=== PATIENT | male | born 1965 | race Hispanic/Latino ===

== ENCOUNTER 2016-11-26 17:33 | Emergency (ER) | payer OTHER ==
--- NOTE | 2016-11-26 18:55 | RAD ---
EXAM: Sternum CLINICAL INDICATION: 51-year-old male status post trauma, hit in the chest with a pipe. COMPARISON: None. TECHNIQUE: Two views of the sternum were obtained in oblique and lateral projection. FINDINGS: There is no fracture or dislocation. The joint spaces are preserved. No soft tissue abnormalities are seen. IMPRESSION: No acute radiographic abnormality. If there remains clinical concern for bone trauma, CT chest may be considered. A Electronically signed by: Elaine Jaramillo MD 11/26/2016 6:53 PM CDT
[2016-11-26] MEDS ORDERED: KETOROLAC TROMETHAMINE INJ 30 MG/ML VIAL IM ONE (19:45)
[2016-11-26] MEDS ORDERED: KETOROLAC TROMETHAMINE INJ 30 MG/ML VIAL ONE (19:46)
[2016-11-26 20:24] VITALS: O2SAT 95
[2016-11-26] MEDS ORDERED: NEOMYCIN-BACITRACIN-POLYMYXIN 0.9 GM UD TOP ONE (20:30)
--- NOTE | 2016-11-26 21:18 | ED.PDOC ---
History of Present Illness - General Chief Complaint: Trauma Stated Complaint: Hit in chest by a pipe works in the [place] Time Seen by Provider: 11/26/16 18:19 Source: patient, RN notes reviewed, Vital Signs reviewed Exam Limitations: no limitations - History of Present Illness Initial Comments: Patient is a 51 y/o male who was working in the [place] earlier to day when a large steel pipe hit him in the middle of the chest. It stunned him and he couldn't breathe for a few seconds. He reports severe pain to the chest which is a pressure. He is having no shortness of breath now. He has not felt any palpitations. Timing/Duration: 4-6 hours Severity: severe Improving Factors: nothing Worsening Factors: movement Associated Symptoms: denies symptoms Allergies/Adverse Reactions: Allergies NO KNOWN ALLERGY Allergy (Verified 08/19/16 09:08) Home Medications: Ambulatory Orders Naproxen [Naprosyn] 500 mg PO BID #30 tab 11/26/16 tiZANidine [Zanaflex] 4 mg PO TID PRN #30 tab 11/26/16 Review of Systems - Review of Systems Constitutional: States: no symptoms reported. Denies: chills, fever EENTM: States: no symptoms reported. Denies: ear pain, nose congestion, throat pain Respiratory: States: short of breath Cardiology: States: chest pain Gastrointestinal/Abdominal: States: no symptoms reported. Denies: nausea, vomiting Genitourinary: States: no symptoms reported. Denies: dysuria Musculoskeletal: States: muscle pain, other - sternal pain. Denies: joint pain , joint swelling Skin: States: other - small laceration to right forearm. Neurological: States: no symptoms reported. Denies: numbness, tingling Endocrine: States: no symptoms reported. Denies: intolerance to cold, intolerance to heat Hematologic/Lymphatic: States: no symptoms reported. Denies: anemia All other Systems: Reviewed and Negative Past Medical History (General) - Patient Medical History Hx Seizures: No Hx Stroke: No Hx Dementia: No Hx Asthma: No Hx of COPD: No Hx Cardiac Disorders: No Hx Congestive Heart Failure: No Hx Pacemaker: No Hx Hypertension: Yes Hx Thyroid Disease: No Hx Diabetes: No Hx Gastroesophageal Reflux: No Hx Renal Disease: No Hx Cancer: No Hx of HIV: No Hx Hepatitis C: No Hx MRSA: No Surgical History: no surgical history - Vaccination History Hx Tetanus, Diphtheria Vaccination: No Hx Influenza Vaccination: No Hx Pneumococcal Vaccination: No Immunizations Up to Date: No - Social History Hx Tobacco Use: No Hx Chewing Tobacco Use: No Hx Alcohol Use: Yes - Occas Hx Substance Use: No Hx Substance Use Treatment: No Hx Depression: No Feels Threatened In Home Enviroment: No Feels Threatened In a Relationship: No Hx Physical Abuse: No Hx Emotional Abuse: No Hx Suspected Abuse: No Family Medical History - Family History Mother Family History: No Known Physical Exam - Physical Exam General Appearance: Alert, Obvious distress - mild to moderate Eye Exam: bilateral normal Ears, Nose, Throat: hearing grossly normal, normal ENT inspection Neck: non-tender, full range of motion, supple, normal inspection Respiratory: lungs clear, normal breath sounds, no respiratory distress, no accessory muscle use, other - chest wall tenderness lower sternum and associated cartilage Cardiovascular/Chest: normal peripheral pulses, regular rate, rhythm, no edema, no murmur Gastrointestinal/Abdominal: normal bowel sounds, non tender, soft, no organomegaly Extremity: normal range of motion, non-tender, normal inspection Neurologic: alert, normal mood/affect, oriented x 3 Skin Exam: other - abrasion and ecchymosis to anterior chest at lower sternum which is horizontally 7 cm wide and longitudinally 4 cm at widest part. A 2.4 cm superficial laceration is on right forearm just inferior to the elbow posteriorally. Progress - Results/Orders Results/Orders: 11/26/16 11/26/16 11/26/16 19:07 19:08 20:14 Temperature 99.6 F Pulse Rate 81 Pulse Rate [R 79 77 Arm] Respiratory 18 23 Rate Blood Pressure 149/97 139/83 [R Hand] O2 Sat by Pulse 95 93 L Oximetry 11/26/16 20:19 Temperature 98.7 F Pulse Rate 81 Pulse Rate [R 85 Arm] Respiratory 23 Rate Blood Pressure 139/83 [R Hand] O2 Sat by Pulse 95 Oximetry 11/26/16 18:30 EKG STAT Laboratory Results Troponin I < 0.02 ng/mL (0.01-0.05) 11/26/16 18:30 - EKG/XRAY/CT EKG: Sinus - 80 bpm, no ST T wave changes Comments: 1st degree a/v block, NML axis, No comparison--SR with 1st degree a/v block XRAY: sternum - No fracture Procedures - Laceration/Wound Repair Left Arm Wound Length (cm): 2.4 Wound's Depth, Shape: superficial Wound Explored: clean Irrigated w/ Saline (cc's): 20 Betadine Prep?: Yes Wound Repaired With: dermabond Layer Closure?: No Departure - Departure Clinical Impression: Acute traumatic injury of chest wall Chest wall contusion Qualifiers: Encounter type: initial encounter Laterality: unspecified laterality Qualifier Code: (S20.219A) Contusion of unspecified front wall of thorax, initial encounter Laceration of right upper extremity Qualifiers: Encounter type: initial encounter Qualifier Code: (S41.111A) Laceration without foreign body of right upper arm, initial encounter ICD-10 Supporting Text: Blunt chest wall injury by steel maria victoria. Laceration 2.4 cm in length. Time of Disposition: 21:32 Disposition: Discharge to Home or Self Care Condition: Fair Departure Forms: ED Discharge - Pt. Copy, Patient Portal Self Enrollment Instructions: DI for Laceration Repair With Dermabond Diet: resume usual diet Referrals: RONALDO MENDEZ [employer] [Primary Care Provider] - 1-2 Weeks Prescriptions: Naproxen [Naprosyn] 500 mg PO BID #30 tab tiZANidine [Zanaflex] 4 mg PO TID PRN #30 tab PRN Reason: Muscle Spasms Home Medications: Ambulatory Orders Naproxen [Naprosyn] 500 mg PO BID #30 tab 11/26/16 tiZANidine [Zanaflex] 4 mg PO TID PRN #30 tab 11/26/16
[2016-11-26 21:46] VITALS: BP 130/79; TEMP 97
== END 2016-11-26 21:46 | disposition home or self-care (01) ==
LOC: ER 17:33
DX: S20.219A Contusion of unspecified front wall of thorax, initial encounter (principal); S41.111A Laceration without foreign body of right upper arm, initial encounter; I10 Essential (primary) hypertension; W22.8XXA Striking against or struck by other objects, initial encounter; Y92.65 Oil rig as the place of occurrence of the external cause; Y99.0 Civilian activity done for income or pay
CPT/HCPCS: 36415; 71120; 84484; 93005; J1885

== ENCOUNTER → 2016-12-26 | Outpatient (CLI) | payer SELFPAY | END | disposition home or self-care (01) | LOC: YCFC.O 08:31 | PROVIDERS: ATTEND Nurse Practitioner Family | DX: E78.2 Mixed hyperlipidemia (principal); I10 Essential (primary) hypertension ==

== ENCOUNTER 2017-06-22 09:32 | Emergency (ER) | payer SELFPAY ==
[2017-06-22 09:37] VITALS: TEMP 98.7
--- NOTE | 2017-06-22 10:16 | ED.PDOC ---
History of Present Illness - General Chief Complaint: Blood Pressure Problem Stated Complaint: high blood pressure Time Seen by Provider: 06/22/17 10:13 Source: patient Exam Limitations: no limitations - History of Present Illness Initial Comments: Aryan Gunter 52 y/o male stated that his blood pressure went up this morning and has mild headache today no blurry vision,no nausea vomiting ,no chest pains ,no weakness ,no numbness,no photophobia,no phonopsia Timing/Duration: 4-6 hours Severity: moderate Improving Factors: nothing Worsening Factors: nothing Associated Symptoms: other - headache Allergies/Adverse Reactions: Allergies NO KNOWN ALLERGY Allergy (Verified 06/22/17 09:37) Home Medications: Ambulatory Orders Lisinopril & Hydrochlorothiazi [Lisinopril/Hctz 20-25 mg] 2 tab PO DAILY Review of Systems - Review of Systems Constitutional: States: no symptoms reported EENTM: States: no symptoms reported Respiratory: States: no symptoms reported Cardiology: States: no symptoms reported, chest pain Genitourinary: States: see HPI Musculoskeletal: States: no symptoms reported Skin: States: no symptoms reported Neurological: States: headache Endocrine: States: no symptoms reported Past Medical History (General) - Patient Medical History Hx Seizures: No Hx Stroke: No Hx Dementia: No Hx Asthma: No Hx of COPD: No Hx Cardiac Disorders: No Hx Congestive Heart Failure: No Hx Pacemaker: No Hx Hypertension: Yes Hx Thyroid Disease: No Hx Diabetes: No Hx Gastroesophageal Reflux: No Hx Renal Disease: No Hx Cancer: No Hx of HIV: No Hx Hepatitis C: No Hx MRSA: No Surgical History: no surgical history - Vaccination History Hx Tetanus, Diphtheria Vaccination: No Hx Influenza Vaccination: No Hx Pneumococcal Vaccination: No - Social History Hx Tobacco Use: No Hx Chewing Tobacco Use: No Hx Alcohol Use: Yes - 6 cans beer /day Hx Substance Use: No Hx Substance Use Treatment: No Hx Depression: No Hx Physical Abuse: No Hx Emotional Abuse: No Hx Suspected Abuse: No Family Medical History - Family History Mother Family History: No Known Hx Family Hypertension: Yes - multiple family members Hx Family Diabetes: Yes - mom Physical Exam - Physical Exam General Appearance: Alert, No apparent distress Eye Exam: bilateral normal Ears, Nose, Throat: hearing grossly normal, normal ENT inspection, normal pharynx Neck: non-tender, full range of motion, supple Respiratory: lungs clear, normal breath sounds Cardiovascular/Chest: regular rate, rhythm, no murmur Peripheral Pulses: radial,right: 2+, radial,left: 2+ Gastrointestinal/Abdominal: normal bowel sounds, non tender, soft, no organomegaly Back Exam: normal inspection, no CVA tenderness Extremity: non-tender, normal inspection, no pedal edema, no calf tenderness Neurologic: no motor/sensory deficits, alert, normal mood/affect, oriented x 3 Progress - Progress Progress: 06/22/17 10:19 Vital Signs - 8 hr 06/22/17 09:32 Temperature 98.7 F Pulse Rate [ 96 H pulse ox] Respiratory 20 Rate Blood Pressure 172/93 [Left Arm] O2 Sat by Pulse 98 Oximetry 06/22/17 11:03 Vital Signs - 8 hr 06/22/17 09:32 Temperature 98.7 F Pulse Rate [ 96 H pulse ox] Respiratory 20 Rate Blood Pressure 172/93 [Left Arm] O2 Sat by Pulse 98 Oximetry Stated feeling better after clonidine and tylenol BP-156/93 pulse rate 87 Departure - Departure Clinical Impression: Hypertension Qualifiers: Hypertension type: essential hypertension Qualified Code(s): I10 - Essential ( primary) hypertension Time of Disposition: 11:05 Disposition: Discharge to Home or Self Care Condition: Good Departure Forms: ED Discharge - Pt. Copy, Patient Portal Self Enrollment Instructions: DI for High Blood Pressure Diet: low fat, low cholesterol Referrals: RONALDO MENDEZ [employer] [Primary Care Provider] - 1-2 Weeks Home Medications: Ambulatory Orders Lisinopril & Hydrochlorothiazi [Lisinopril/Hctz 20-25 mg] 2 tab PO DAILY Additional Instructions: Need to take high blood pressure medication one tablet am/pm NOT 2 tabs at bedtime
[2017-06-22] MEDS ORDERED: cloNIDine HCL 0.1 MG TAB PO ONE (10:19)
[2017-06-22] MEDS ORDERED: ACETAMINOPHEN 325 MG TAB PO ONE (10:20)
[2017-06-22 11:14] VITALS: BP 156/93; O2SAT 97
== END 2017-06-22 11:14 | disposition home or self-care (01) ==
LOC: ER 09:32
DX: I10 Essential (primary) hypertension (principal)

== ENCOUNTER → 2017-11-05 | Outpatient (CLI) | payer OTHER | LOC: LAB.O 08:11 | PROVIDERS: ATTEND Nurse Practitioner Family | DX: I10 Essential (primary) hypertension (principal); E78.2 Mixed hyperlipidemia ==

== ENCOUNTER 2019-03-30 13:21 | Emergency (ER) | payer SELFPAY ==
[2019-03-30 13:35] VITALS: TEMP 98.2; O2SAT 98
[2019-03-30] MEDS ORDERED: KETOROLAC TROMETHAMINE INJ 60 MG/2 ML VIAL IM ONE (14:24)
--- NOTE | 2019-03-30 14:25 | ED.PDOC ---
History of Present Illness - General Chief Complaint: Headache Stated Complaint: HEADACHE AND BP ELEVATED Time Seen by Provider: 03/30/19 14:08 Source: patient Exam Limitations: no limitations - History of Present Illness Initial Comments: C/O 2 DAY HX OF [place]. L SIDED, SHARP, NON RADIATING. NO HX OF TRAUMA, MIL-MOD, NO PRECIPITATING OR RELIEVING FACTORS. Timing/Duration: other - 2 DAYS. Severity: moderate Improving Factors: nothing Worsening Factors: nothing Allergies/Adverse Reactions: Allergies NO KNOWN ALLERGY Allergy (Verified 03/30/19 13:32) Home Medications: Ambulatory Orders Lisinopril & Hydrochlorothiazi [Lisinopril/Hctz 20-25 mg] 2 tab PO DAILY 06/22/17 [id number] [Fioricet] 1 tab PO TID PRN 10 Days #30 tab 03/30/19 Review of Systems - Review of Systems Constitutional: Denies: chills, fever EENTM: Denies: eye pain, ear pain, nose congestion, throat pain Respiratory: Denies: cough, short of breath Cardiology: Denies: chest pain, palpitations Gastrointestinal/Abdominal: Denies: abdominal pain, nausea, vomiting Genitourinary: States: no symptoms reported Musculoskeletal: States: no symptoms reported Skin: States: no symptoms reported Neurological: States: headache. Denies: numbness, weakness Endocrine: States: no symptoms reported Hematologic/Lymphatic: States: no symptoms reported Past Medical History (General) - Patient Medical History Hx Seizures: No Hx Stroke: No Hx Dementia: No Hx Asthma: No Hx of COPD: No Hx Cardiac Disorders: No Hx Congestive Heart Failure: No Hx Pacemaker: No Hx Hypertension: Yes Hx Thyroid Disease: No Hx Diabetes: No Hx Gastroesophageal Reflux: No Hx Renal Disease: No Hx Cancer: No Hx of HIV: No Hx Hepatitis C: No Hx MRSA: No Surgical History: no surgical history - Vaccination History Hx Tetanus, Diphtheria Vaccination: No Hx Influenza Vaccination: No Hx Pneumococcal Vaccination: No - Social History Hx Tobacco Use: No Hx Chewing Tobacco Use: No Hx Alcohol Use: Yes - 6 cans beer /day Hx Substance Use: No Hx Substance Use Treatment: No Hx Depression: No Hx Physical Abuse: No Hx Emotional Abuse: No Hx Suspected Abuse: No Family Medical History - Family History Mother Family History: No Known Hx Family Hypertension: Yes - multiple family members Hx Family Diabetes: Yes - mom Hx Family Cancer: Yes Physical Exam - Physical Exam General Appearance: Alert, No apparent distress Eye Exam: bilateral normal Ears, Nose, Throat: hearing grossly normal, normal ENT inspection, normal pharynx, other - TM'S NL NELSON. Neck: non-tender, full range of motion, supple, normal inspection Respiratory: lungs clear, normal breath sounds Cardiovascular/Chest: regular rate, rhythm, no murmur Gastrointestinal/Abdominal: non tender, soft, no organomegaly Back Exam: normal inspection, no CVA tenderness Extremity: normal range of motion, non-tender, normal inspection Neurologic: no motor/sensory deficits, alert, normal mood/affect, oriented x 3 Skin Exam: normal color, warm/dry Lymphatic: no adenopathy Progress - Progress Progress: 03/30/19 15:32 FEELS BETTER, BP BETTER. Departure - Departure Clinical Impression: Tension headache HTN (hypertension) Qualifiers: Hypertension type: essential hypertension Qualified Code(s): I10 - Essential (primary) hypertension Time of Disposition: 15:33 Disposition: Discharge to Home or Self Care Condition: Good Departure Forms: ED Discharge - Pt. Copy, Patient Portal Self Enrollment Instructions: DI for Headache Referrals: RONALDO MENDEZ [employer] [Primary Care Provider] - 1-2 Weeks Prescriptions: Mnartlaidiwum-Sdzs-Wvfvohitmu [Fioricet] 1 tab PO TID PRN 10 Days #30 tab PRN Reason: Headache/Migraine Pain Home Medications: Ambulatory Orders Lisinopril & Hydrochlorothiazi [Lisinopril/Hctz 20-25 mg] 2 tab PO DAILY 06/22/17 Tyrzpcgffmqzo-Pvjc-Vufovyzloj [Fioricet] 1 tab PO TID PRN 10 Days #30 tab 03/30/19
[2019-03-30 15:44] VITALS: BP 145/92
== END 2019-03-30 15:44 | disposition home or self-care (01) ==
LOC: ER 13:21
DX: G44.209 Tension-type headache, unspecified, not intractable (principal); I10 Essential (primary) hypertension; Z79.899 Other long term (current) drug therapy

== ENCOUNTER → 2019-12-05 | Outpatient (CLI) | payer SELFPAY | LOC: LAB.O 09:01 | PROVIDERS: ATTEND Family Medicine | DX: D72.829 Elevated white blood cell count, unspecified (principal) ==